=== PATIENT | female | born 1980 ===

== ENCOUNTER 2018-11-14 17:55 | Inpatient (IN) | payer OTHER ==
[2018-11-14] MEDS ORDERED: ELECTROLYTE-148 SOLN 500 ML IV ONE (20:00)
--- NOTE | 2018-11-14 20:44 | HP ---
Past Medical History - Primary Care Physician PCP:: Adriana Lynne - Admission Chief Complaint: 38yo P4 @ 36.6 wks with contructions, no VB, no LOF, + FM, feels contructions are getting progresivly uncomfortable History of Present Illness: 1. Grand multip with h/o PPH and after SAB- T&C x 2 Units, uterotonics at delivery 2. AMA - Materni 21 normal XY 3. PreGestational Type 2 on Insulin - am 6U, Lunch 14U, dinner 20U, PM 26U 4. Hypothyroid on Levothyroxin 100mcg History Source: Patient, Medical Record Limitations to Obtaining History: No Limitations - Past Medical History ...: 7 ...Para: 4 ...Term: 4 ...: 0 ...Spon : 2 ...Induced : 0 ...LMP: 03/01/18 ... Weeks Gestation by Dates: 36.6 ...EDC by Dates: 12/06/18 Endocrine: Yes: Diabetes Mellitus, Hypothyroidism - Past Surgical History Hx Myomectomy: No Hx Transabdominal Cerclage: No Additional Surgical History: D&C x 1 - Smoking History Have you smoked in the past 12 months: No - Alcohol/Substance Use Hx Alcohol Use: No History of Substance Use: reports: None - Social History History of Recent Travel: No Home Medications - Allergies Allergies/Adverse Reactions: Allergies Allergy/AdvReac Type Severity Reaction Status Date / Time No Known Allergies Allergy Verified 11/14/18 19:05 - Home Medications Home Medications: Ambulatory Orders Levemir Flextouch 26 units SQ ONCE 11/14/18 Levothyroxine 100 tab PO DAILY 11/14/18 Novolog - 8 units SQ TID 11/14/18 Tablet 1 tab PO DAILY 11/14/18 Review of Systems - Review of Systems Constitutional: reports: No Symptoms Eyes: reports: No Symptoms HENT: reports: No Symptoms Neck: reports: No Symptoms Cardiovascular: reports: No Symptoms Respiratory: reports: No Symptoms Gastrointestinal: reports: No Symptoms Genitourinary: reports: No Symptoms, Other (feels contruction pains) Breasts: reports: No Symptoms Reported Musculoskeletal: reports: No Symptoms Integumentary: reports: No Symptoms Neurological: reports: No Symptoms Endocrine: reports: No Symptoms Hematology/Lymphatic: reports: No Symptoms Psychiatric: reports: No Symptoms Physical Exam - Maternity Vital Signs: Vital Signs Temperature 98.8 F 11/14/18 17:55 Pulse Rate 100 H 11/14/18 17:55 Respiratory Rate 20 11/14/18 17:55 Blood Pressure 118/77 11/14/18 17:55 O2 Sat by Pulse Oximetry (%) Constitutional: Yes: Well Nourished, No Distress, Calm Eyes: Yes: WNL HENT: Yes: WNL, Atraumatic, Normocephalic Neck: Yes: WNL Cardiovascular: Yes: WNL, Regular Rate and Rhythm Lungs: Clear to auscultation Breast(s): Yes: WNL - Abdominal Exam/OB Fundal Height: 37 Number of Fetuses: Single Presentation: Vertex Contractions: Yes Regularity: Regular Heart Rate (range): 145 Heart Rate Location: Midline Category: I Accelerations: Uniform Decelerations: None - Vaginal Exam/OB Vaginal Bleediing: No Speculum Exam: No Dilatation (cm): 4 Effacement (%): 75% Amniotic Membrane Status: Intact Presentation: Vertex/Position Station: -3 - Physical Exam Musculoskeletal: Yes: WNL Extremities: Yes: WNL Edema: No Integumentary: Yes: WNL ...Motor Strength: WNL Psychiatric: Yes: WNL, Alert, Oriented - Labs Lab Results: Opos/RI/RPR-nr/HB-neg/HIV neg/GBS neg Assessment/Plan 38yo P4 @ 36.6wks with GDM, Hypothyrodism, Grand multip in early labor admit to L&D Admit labs, NPO, IVF FS Q 2hr, alternating fluids to keep FS within 100-140 range Desires epidural for pain management T&C x 2 units PPH cart in the room at delivery will not expedite delivery till full 37 weeks no [place] as per Dr. Morfin NICU at delivery
[2018-11-14] MEDS: ELECTROLYTE-148 SOLN 1,000 ML IV SCH (20:45)
[2018-11-14 21:18] LABS: BASO % 0.3 % (0-2.0); EOS % 0.3 % (0-4.5); HEMATOCRIT 33.7 % (32.4-45.2); HEMOGLOBIN 11.1 GM/dL (10.7-15.3); LYMPH % 22.1 % (8-40); MCH 28.1 pg (25.7-33.7); MCHC 32.9 g/dl (32.0-36.0); MEAN CELL VOLUME 85.5 fl (80-96); MEAN PLT VOLUME 8.1 fl (7.5-11.1); MONO % 6.2 % (3.8-10.2); NEUT % 71.1 % (42.8-82.8); PLATELET COUNT 222 K/MM3 (134-434); RBC 3.94 M/mm3 (3.60-5.2); RDW 14.9 % (11.6-15.6); WHITE BLOOD COUNT 11.6 K/mm3 (4.0-10.0)
[2018-11-14 21:28] LABS: INR 1.02 (0.83-1.09)
[2018-11-14 21:31] LABS: ACTIVATED PTT 30.1 SECONDS (25.2-36.5)
[2018-11-14 21:32] LABS: ANION GAP 8 MMOL/L (8-16); BLOOD UREA NITROGEN 8 mg/dL (7-18); CALCIUM 8.9 mg/dL (8.5-10.1); CHLORIDE 108 mmol/L (98-107); CO2 22 mmol/L (21-32); CREATININE 0.4 mg/dL (0.55-1.3); GLUCOSE,RANDOM 80 mg/dL (74-106); POTASSIUM 4.1 mmol/L (3.5-5.1); SODIUM 139 mmol/L (136-145)
[2018-11-14] MEDS ORDERED: FENTANYL/BUPIVACAINE/NS/PF - PCEA - 50 ML DISP.SYRIN EP ONE (22:52)
[2018-11-14] MEDS ORDERED: NALOXONE HCL 0.4 MG/ML VIAL IVPUSH PRN (22:56)
[2018-11-14] MEDS ORDERED: BUPIVACAINE HCL/PF 0.25% (2.5MG/ML) 10 ML VIAL ONE (22:58)
[2018-11-14] MEDS ORDERED: LIDO 2%/EPI 1:200000 PRESRVFRE (20 ML SDVIAL) ONE (22:58)
[2018-11-14] MEDS: FENTANYL/BUPIVACAINE/NS/PF - PCEA - 50 ML DISP.SYRIN EP SCH (23:35)
[2018-11-15 01:18] VITALS: BMI 27.8
[2018-11-15] MEDS ORDERED: FENTANYL/BUPIVACAINE/NS/PF - PCEA - 50 ML DISP.SYRIN EP ONE ×2 (03:47→06:41)
--- NOTE | 2018-11-15 05:19 | PN ---
Progress Note, Labor Vaginal Exam #1 Labor Exam Date: 11/15/18 Labor Exam Time: 05:00 Heart Rate (range): 140 Category 1 Dilatation: 6 Effacement (%): 50% Amniotic Membrane Status: Intact Presentation: Vertex/Position Station: -3 Remarks: 38yo P4 comfortable with epidural AROM - clear for augmentation MF status reasuring PPH cart at delivery
[2018-11-15] MEDS ORDERED: LEVOTHYROXINE NA 100 MCG TABLET (FP) PO SCH (07:00)
[2018-11-15] MEDS ORDERED: BUPIVACAINE HCL/PF 0.25% (2.5MG/ML) 10 ML VIAL ONE (07:46)
[2018-11-15] MEDS ORDERED: OXYTOCIN 15 UNITS/ LR 250 ML 15 UNIT/250 ML INFUS.BAG IVPB SCH (08:45)
[2018-11-15] MEDS ORDERED: SODIUM CHLORIDE 0.9% P/F 10 ML VIAL IJ ONE (09:09)
[2018-11-15] MEDS ORDERED: OXYTOCIN 30 UNITS in 0.9% NS 30 UNIT/500 ML INFUS.BAG IVPB ONE (09:14)
[2018-11-15] MEDS ORDERED: BUTORPHANOL TARTRATE 1 MG/ML VIAL ONE ×2 (09:39)
[2018-11-15] MEDS ORDERED: PROMETHAZINE HCL 25 MG/1 ML VIAL ONE (09:39)
[2018-11-15] MEDS ORDERED: PROMETHAZINE HCL 25 MG/1 ML VIAL IVPB ONE (09:45)
[2018-11-15] MEDS ORDERED: BUTORPHANOL TARTRATE 2 MG/ML VIAL IVPB ONE (09:45)
[2018-11-15] MEDS ORDERED: ELECTROLYTE-148 SOLN 1,000 ML IV SCH (10:00)
[2018-11-15] MEDS ORDERED: TUBERCULIN PPD 5 TU/0.1ML SYRINGE (IN PATIENT USE ONLY) ID ONE (10:00)
[2018-11-15] MEDS ORDERED: OXYTOCIN 20 UNITS in 0.9% NS 20 UNIT/1,000 ML INFUS.BAG IV ONE (13:06)
[2018-11-15] MEDS ORDERED: LIDOCAINE HCL 1% PRESERVATIVE FREE - 30ML VIAL ONE (13:06)
[2018-11-15] MEDS ORDERED: WITCH HAZEL 50% (TUCKS) 40 PAD/JAR PAD TP PRN (13:49)
[2018-11-15] MEDS ORDERED: BENZOCAINE 20% 57 GM BOTTLE TP PRN (13:49)
[2018-11-15] MEDS ORDERED: METHYLERGONOVINE MALEATE 0.2 MG/1 ML AMP IM PRN (13:49)
[2018-11-15] MEDS ORDERED: BISACODYL 10 MG SUPP.RECT RC PRN (13:49)
[2018-11-15] MEDS ORDERED: BENZOCAINE 28 GM HEMORRHOIDAL OINTMENT TP PRN (13:49)
[2018-11-15] MEDS ORDERED: METHYLERGONOVINE MALEATE 0.2 MG/1 ML AMP IM ONE (13:51)
[2018-11-15] MEDS ORDERED: OXYTOCIN 20 UNITS in 0.9% NS 20 UNIT/1,000 ML INFUS.BAG IV SCH (14:00)
[2018-11-15] MEDS ORDERED: D5W-LR W/ 20 UNITS OXYTOCIN 20 UNIT/1,000 ML INFUS.BAG IV SCH (14:00)
[2018-11-15] MEDS ORDERED: ACETAMINOPHEN 325 MG TABLET (FP) ONE (14:11)
[2018-11-15 14:12] LABS: VENOUS PC02 43.5 mmHg (41-51); VENOUS PO2 30.9 mmHg (30-40)
[2018-11-15] MEDS: IBUPROFEN 600 MG TABLET (FP) PO PRN ×3 (14:15→22:42)
[2018-11-15] MEDS: ACETAMINOPHEN 325 MG TABLET (FP) PO PRN ×3 (14:15→22:42)
[2018-11-15 14:23] LABS: ARTERIAL BLOOD GAS PCO2 57.6 mmHg (35-45); VENOUS PH 7.33 (7.31-7.41)
[2018-11-15 14:24] LABS: ALLENS TEST POSITIVE; ARTERIAL BLD GAS O2 SATURATION 36.9 % (95-98)
[2018-11-15 14:25] LABS: ARTERIAL BLOOD GAS pH 7.27 (7.35-7.45)
[2018-11-15 14:26] LABS: ARTERIAL BLOOD GAS PO2 22.2 mmHg (80-105)
[2018-11-15] MEDS: ELECTROLYTE-148 SOLN 1,000 ML IV SCH (21:06)
[2018-11-15] MEDS: FERROUS SO4 325 MG TABLET (FP) PO SCH (21:17)
[2018-11-16] MEDS: LEVOTHYROXINE NA 100 MCG TABLET (FP) PO SCH (06:23)
[2018-11-16] MEDS: FENTANYL/BUPIVACAINE/NS/PF - PCEA - 50 ML DISP.SYRIN EP SCH (07:16)
[2018-11-16] MEDS: ACETAMINOPHEN 325 MG TABLET (FP) PO PRN ×3 (07:51→20:01)
[2018-11-16] MEDS: IBUPROFEN 600 MG TABLET (FP) PO PRN ×3 (07:52→20:02)
--- NOTE | 2018-11-16 08:10 | PN ---
Post Progress Note - Subjective Subjective: Patient without acute complaints. Reports tolerating oral intake without nausea or vomiting. Ambulating without dizziness. Denies fevers or chills. Pain well controlled with oral pain medication. Pumping/breast feeding without issue. Passing flatus, no BM. Post Day: 1 Type of Delivery: Vital Signs: Vital Signs Temperature 97.4 F L 11/16/18 06:28 Pulse Rate 83 11/16/18 06:28 Respiratory Rate 20 11/16/18 06:28 Blood Pressure 91/55 L 11/16/18 06:28 O2 Sat by Pulse Oximetry (%) 100 11/15/18 09:45 Breast Exam: Yes: Soft Uterus: Yes: Fundus Firm, Fundus below umbilicus, Non-tender Abdomen/GI: Yes: Abdomen soft, Passing flatus, Tolerating PO Lochia: Yes: Rubra Lochia, amount: Small Extremities: Yes: Calves non-tender, Edema (trace) Perineum: Yes: Intact Activity: Ambulating - Labs Labs: CBC WBC 11.6 K/mm3 (4.0-10.0) H 11/14/18 20:50 RBC 3.94 M/mm3 (3.60-5.2) 11/14/18 20:50 Hgb 11.1 GM/dL (10.7-15.3) 11/14/18 20:50 Hct 33.7 % (32.4-45.2) 11/14/18 20:50 MCV 85.5 fl (80-96) 11/14/18 20:50 MCH 28.1 pg (25.7-33.7) 11/14/18 20:50 MCHC 32.9 g/dl (32.0-36.0) 11/14/18 20:50 RDW 14.9 % (11.6-15.6) 11/14/18 20:50 Plt Count 222 K/MM3 (134-434) 11/14/18 20:50 MPV 8.1 fl (7.5-11.1) 11/14/18 20:50 Absolute Neuts (auto) 8.3 K/mm3 (1.5-8.0) H 11/14/18 20:50 Neutrophils % 71.1 % (42.8-82.8) 11/14/18 20:50 Lymphocytes % 22.1 % (8-40) 11/14/18 20:50 Monocytes % 6.2 % (3.8-10.2) 11/14/18 20:50 Eosinophils % 0.3 % (0-4.5) 11/14/18 20:50 Basophils % 0.3 % (0-2.0) 11/14/18 20:50 Nucleated RBC % 0 % (0-0) 11/14/18 20:50 Assessment/Plan 27yo P5 s/p , doing well stable, afebrile. Asymptomatic for anemia. FSG are WNL. Pt was advised to continue FSG monitoring and diet due to suspicion of pregestational diabetes. care instructions reviewed. Continue routine care. Ambulation encouraged Discharge instruction reviewed.
--- NOTE | 2018-11-16 08:15 | DS ---
Physical Exam-[facility] Vital Signs: Vital Signs Temperature 97.4 F L 11/16/18 06:28 Pulse Rate 83 11/16/18 06:28 Respiratory Rate 20 11/16/18 06:28 Blood Pressure 91/55 L 11/16/18 06:28 O2 Sat by Pulse Oximetry (%) 100 11/15/18 09:45 Constitutional: Yes: Well Nourished, No Distress, Calm Eyes: Yes: WNL, Conjunctiva Clear HENT: Yes: WNL, Atraumatic, Normocephalic Neck: Yes: WNL, Supple, Trachea Midline Cardiovascular: Yes: WNL, Regular Rate and Rhythm Respiratory: Yes: WNL, Regular, CTA Bilaterally Gastrointestinal: Yes: WNL, Normal Bowel Sounds, Soft ...Rectal Exam: Yes: Deferred Renal/: Yes: WNL Internal Exam Deferred: Yes ....Post : Yes: Uterus firm, Uterus non-tender, Slight lochia rubra Breast(s): Yes: WNL Musculoskeletal: Yes: WNL Extremities: Yes: WNL Edema: Yes Edema: LLE: Trace, RLE: Trace Integumentary: Yes: WNL Neurological: Yes: WNL, Alert, Oriented ...Motor Strength: WNL Psychiatric: Yes: WNL, Alert, Oriented Labs: CBC, BMP 11/14/18 20:50 11/14/18 20:50 Delivery - Delivery Vaginal Delivery: No Problems, Spontaneous Type of Anesthesia: Epidural Episiotomy/Laceration: None EBL (cc): 300 Delivery, Single - Stages of Labor Date 1st Stage Initiatied: 11/15/18 Time 1st Stage Initiated: 17:55 Date 2nd Stage Initiated: 11/15/18 Time 2nd Stage Initiated: 13:15 Date of Delivery: 11/15/18 Time of Delivery: 13:22 Time Placenta Delivered: 13:25 Placenta: Yes: Spontaneous, Normal Configuration - 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 Gender: Male Weight: 2.863 kg Position: Left, OA Total Hours ROM (Hrs/Mins): 8HRS 25MIN - 1 Minute Total Score: 9 5 Minutes Total Score: 9 - Feeding Plan Initial Plan: Elected not to breastfeed exclusively throughout hospitalization Discharge Summary Reason For Visit: LABOR ADMIT Spontaneous labor at 37wks, GDM A2, grandmultiparity Procedures: Principal: [facility] Hospital Course: Normal vaginal delivery and recovery Condition: Good - Instructions Diet, Activity, Other Instructions: Physical activity Resume your normal everyday activity as tolerated no heavy lifting or exercise until seen by your surgeon. You may walk unlimited law of and climb stairs. You may resume driving the car when you feel safe and comfortable behind the wheel. No sexual activity as instructed. Wound care If you have a bandage, leave it on, and keep dry for 48-72 hours. After that time discard the outer bandage. If they are tapes on the skin under the out of bandage leave them in place. They will peel off in the next 7 to 10 days. Do Not Peel them off. You may shower the day after surgery. If there are tapes present on the skin, you may shower over them. Diet Please maintain a low carb diet. Eat healthy, high-fiber foods. Drink 6 to 8 glasses of liquid each day. This will assist in keeping your bowels are regular. Pain management You may take Tylenol or acetaminophen or Ibuprofen (for example, Motrin, Advil etc.) from my pain prescription medication is ordered should be taken as prescribed for moderate to severe pain. Call MD for any of the following: Severe pain not relieved by medication Fever of 101 or higher Excessive bleeding or drainage on dressing Inability to urinate Referrals: Swapnil Bolanos MD [Staff Physician] - Disposition: HOME - Home Medications Comprehensive Discharge Medication List: Ambulatory Orders Insulin (Novolog) [Novolog -] 6 units SQ TID 11/15/18 Insulin Detemir [Levemir Flextouch] 26 unit SQ HS 11/15/18 Levothyroxine [Synthroid -] 100 mcg PO DAILY 11/15/18 Pnv No.95/Ferrous Fum/Folic AC [ Vitamin Tablet] 1 each PO DAILY
[2018-11-16 08:22] LABS: BASO % 0.8 % (0-2.0); EOS % 1.3 % (0-4.5); HEMATOCRIT 29.4 % (32.4-45.2); HEMOGLOBIN 9.7 GM/dL (10.7-15.3); LYMPH % 21.4 % (8-40); MCH 28.1 pg (25.7-33.7); MEAN CELL VOLUME 85.3 fl (80-96); MEAN PLT VOLUME 7.9 fl (7.5-11.1); MONO % 6.8 % (3.8-10.2); NEUT % 69.7 % (42.8-82.8); PLATELET COUNT 199 K/MM3 (134-434); RBC 3.45 M/mm3 (3.60-5.2); RDW 15.2 % (11.6-15.6); WHITE BLOOD COUNT 11.6 K/mm3 (4.0-10.0)
[2018-11-16] MEDS: FERROUS SO4 325 MG TABLET (FP) PO SCH ×2 (10:42→22:38)
[2018-11-16] MEDS: PRENATAL VITAMINS W/ FOLIC ACID TABLET (FP) PO SCH (10:42)
[2018-11-16] MEDS ORDERED: SENNOSIDES/DOCUSATE COMBO (SENNA PLUS) TABLET (UD) PO PRN (22:00)
[2018-11-17] MEDS: ACETAMINOPHEN 325 MG TABLET (FP) PO PRN ×3 (01:02→13:10)
[2018-11-17] MEDS: IBUPROFEN 600 MG TABLET (FP) PO PRN ×3 (01:03→13:06)
[2018-11-17] MEDS: LEVOTHYROXINE NA 100 MCG TABLET (FP) PO SCH (06:49)
--- NOTE | 2018-11-17 08:14 | PN ---
Post Progress Note - Subjective Subjective: Patient reports continued back pain, radiating down leg Reports tolerating oral intake without nausea or vomiting. Ambulating without dizziness. Denies fevers or chills. Pain well controlled with oral pain medication. without difficulty. Passing flatus. Post Day: 2 Type of Delivery: Vital Signs: Vital Signs Temperature 98.1 F 11/16/18 20:43 Pulse Rate 91 H 11/16/18 20:43 Respiratory Rate 20 11/16/18 20:43 Blood Pressure 124/80 11/16/18 20:43 O2 Sat by Pulse Oximetry (%) 100 11/15/18 09:45 Breast Exam: Yes: Soft Uterus: Yes: Fundus Firm Abdomen/GI: Yes: Abdomen soft, Passing flatus, Tolerating PO. No: Abdominal Distention, Tender Lochia: Yes: Rubra Lochia, amount: Small Extremities: No: Calves non-tender, Edema Activity: Ambulating - Labs Labs: CBC WBC 11.6 K/mm3 (4.0-10.0) H 11/16/18 08:04 RBC 3.45 M/mm3 (3.60-5.2) L 11/16/18 08:04 Hgb 9.7 GM/dL (10.7-15.3) L 11/16/18 08:04 Hct 29.4 % (32.4-45.2) L 11/16/18 08:04 MCV 85.3 fl (80-96) 11/16/18 08:04 MCH 28.1 pg (25.7-33.7) 11/16/18 08:04 MCHC 33.0 g/dl (32.0-36.0) 11/16/18 08:04 RDW 15.2 % (11.6-15.6) 11/16/18 08:04 Plt Count 199 K/MM3 (134-434) 11/16/18 08:04 MPV 7.9 fl (7.5-11.1) 11/16/18 08:04 Absolute Neuts (auto) 8.1 K/mm3 (1.5-8.0) H 11/16/18 08:04 Neutrophils % 69.7 % (42.8-82.8) 11/16/18 08:04 Lymphocytes % 21.4 % (8-40) 11/16/18 08:04 Monocytes % 6.8 % (3.8-10.2) 11/16/18 08:04 Eosinophils % 1.3 % (0-4.5) D 11/16/18 08:04 Basophils % 0.8 % (0-2.0) 11/16/18 08:04 Nucleated RBC % 0 % (0-0) 11/16/18 08:04 Assessment/Plan 38 yo PPD # 2 sp , afebrile, vital signs stable, mild asymptomatic anemia, stable for discharge home today 1. Patient stable for discharge home today. 2. Patient encouraged to contact MD for: - Severe pain not controlled by oral pain medication - Fevers or chills - Nausea or vomiting, intolerance of oral intake 3. Patient to follow up in office in 4-6 weeks for visit
[2018-11-17] MEDS: FERROUS SO4 325 MG TABLET (FP) PO SCH (09:47)
[2018-11-17] MEDS: PRENATAL VITAMINS W/ FOLIC ACID TABLET (FP) PO SCH (09:47)
[2018-11-17 12:11] VITALS: BP 115/78; PULSE 87; TEMP 98.5
--- NOTE | 2018-11-17 13:33 | PN ---
Progress Note (short form) - Note Progress Note: Asked to evaluate post patient with back pain after labor epidural. Pt states that she has back pain radiating down her right leg that has been unchanged for a week (began before epidural). She also states that she has had evaluations and imaging for lower back pain prior that that after having fallen down stairs. There were [address] labor epidurals while she was in labor. I examined her back, the epidural site is clean and dry. The tip of the catheter was documented as having been removed intact. She has had no fevers or chills. At this time I do not think that her symptoms are caused by her labor epidural. Will remain available for further questions and follow up. Defer to her primary care doctor and neurologist to continue to manage her chronic lower back pain.
== END 2018-11-17 14:30 | disposition home or self-care (01) | DRG 560 ==
LOC: JDEL 17:55 → JLDR 19:50 → J3W 11-15 15:24
PROVIDERS: ADMIT Obstetrics & Gynecology; ATTEND Obstetrics & Gynecology
PROC: 10E0XZZ Delivery of Products of Conception, External Approach (ICD-10-PCS; principal; 2018-11-15)
DX: O24.429 Gestational diabetes mellitus in childbirth, unspecified control (principal); O99.013 Anemia complicating pregnancy, third trimester; O99.283 Endocrine, nutritional and metabolic diseases complicating pregnancy, third trimester; E03.9 Hypothyroidism, unspecified; Z3A.37 37 weeks gestation of pregnancy; Z37.0 Single live birth
CPT/HCPCS: 36415; 36600; 59025; 59409; 80048; 82803; 82962; 85025; 85610; 85730; 86593; 86850; 86900; 86901; 87389